=== PATIENT | male | born 1995 | race Caucasian/White ===

== ENCOUNTER 2016-09-04 21:18 | Inpatient (IN) | payer BC ==
[~2016-09-04] VITALS: Ht 177.8 cm; Wt 59.9 kg
--- NOTE | ~2016-09-04 | HP ---
Unit #: [id number] #: [id number] Patient: KAILASH LOPEZ ER [id number] [place] [address] [id number] I MR#: [id number] NAME: KAILASH LOPEZ ROOM: P254 Age: 21 Sex: M Admission Date: 09/04/2016 : 1995 Attending Physician: Celio Coburn M.D. Admitting Physician: Celio Coburn M.D. Primary Care Physician: Primary Care Physician No HISTORY AND PHYSICAL HISTORY OF PRESENT ILLNESS Kailash is a 21 year old admitted to [address] [place] [address] with episodes of leah. PAST MEDICAL HISTORY 1. History of macular diverticulum a. Surgery as a [age] year old PAST SURGICAL HISTORY As above. ALLERGIES No known drug allergies. SOCIAL HISTORY He does not smoke. Drinks alcohol rarely. Admits to using marijuana on a daily basis. FAMILY HISTORY Medically noncontributory. REVIEW OF SYSTEMS CONSTITUTIONAL: No fever or chills. HEENT: Denies any sore throat, ear pain or runny nose. CARDIOVASCULAR: Denies chest pain, irregular heart rhythm or palpitations. CHEST: Denies shortness of breath or cough. No hemoptysis. GASTROINTESTINAL: Denies nausea, vomiting, diarrhea or chronic constipation. ENDOCRINE: Denies history of increased thirst or urination. No recent significant weight loss or gain. GENITOURINARY: Denies dysuria, frequency, or hematuria. SKIN: Denies any rashes. HEMATOLOGIC: Denies history of increased bleeding or bruising. MUSCULOSKELETAL: Denies any hot, swollen joints. No generalized muscle pain. NEUROLOGIC: Denies problems with vision or speech. No frequent, severe headaches. No numbness, tingling or weakness in any extremities. Denies loss of bladder or bowel control. CURRENT MEDICATIONS 1. Seroquel 50 mg q.h.s. 2. [place] 300 mg b.i.d. 3. Milk of Magnesia p.r.n. Unit #: [id number] #: [id number] Patient: KAILASH LOPEZ ER 4. Maalox p.r.n. 5. Tylenol p.r.n. PHYSICAL EXAMINATION GENERAL: Alert, well-nourished, in no apparent distress. VITAL SIGNS: Blood pressure 130/100, heart rate 80, respirations 16, temperature 98.6. WEIGHT: 132 pounds. HEIGHT: 5'10". SKIN: Warm and dry without rash or lesion. HEENT: Normocephalic. TMs not viewed. Oral and nasal passages clear. Conjunctivae clear. Pupils equal, round and reactive to light and accommodation. Extraocular movements intact. NECK: Supple without lymphadenopathy or thyromegaly. HEART: Regular rate and rhythm without murmur. LUNGS: Clear. ABDOMEN: Soft, nontender. : Not done. EXTREMITIES: No evidence of cyanosis, clubbing or edema. Moves all extremities without focal deficit. NEUROLOGICAL: Grossly within normal limits. Cranial Nerves: II: Visual tiwari are intact. III, IV AND : Extraocular movements are intact. Pupils are equal, round and reactive to light. V: Facial sensation is grossly normal. VII: Facial movements and expression are normal. VIII: Auditory acuity grossly intact. IX, X: Uvula is midline. Phonation is normal. XI: Patient shrugs shoulders and turns head normally. XII: Tongue protrudes in the midline. Sensory and Motor Function: Sensory and motor sensation is grossly normal. Motor: moves all extremities well. Coordination: Gait is normal. Deep Tendon Reflexes: Intact. IMPRESSION Psychiatric admission RECOMMENDATIONS PSYCHIATRIC: Per psychiatrist. MEDICAL: I see no contraindications to participating in facility's activities. MEDICAL PROGNOSIS Good. MEDICAL CONDITION Stable. Dictated by... Kyra Sandoval P.A.-C. for Janiya Britton/luis TD: 09/05/2016 22:28 Unit #: [id number] #: [id number] Patient: KAILASH LOPEZ JOB #: [id number] HISTORY AND PHYSICAL Page 1 of 1 X Kyra Sandoval HISTORY AND PHYSICAL
--- NOTE | ~2016-09-04 | PN ---
Unit #: [id number] #: [id number] Patient: MINA LOPEZ ER [id number] [facility] [address] [place] [address] [id number] I MR#: [id number] NAME: MINA LOPEZ ROOM: P254 Age: 21 Sex: M Admission Date: 09/04/2016 : 1995 Attending Physician: Celio Coburn M.D. Admitting Physician: Celio Coburn M.D. Primary Care Physician: Primary Care Physician Angelina HOSKINS PROGRESS NOTES DATE 09/08/2016 DISCUSSION The patient remains abed, and he states that he is feeling a bit better with discontinuation of Seroquel but does report feeling "a little shaky" after his first low dose Abilify administration. We continue current treatment as the patient continues to express some racing thoughts and depressed mood. Suicidal ideation has reduced considerably. Dictated by... Celio Coburn M.D. CB/moose TD: 09/08/2016 12:40 JOB #: [id number] [facility] PROGRESS NOTES Page 1 of 1 X Celio Coburn MD X PROGRESS NOTE
--- NOTE | ~2016-09-04 | PN ---
Unit #: [id number] #: [id number] Patient: MINA LOPEZ ER [id number] [facility] [address] [place] [address] [id number] MR#: [id number] NAME: MINA LOPEZ ROOM: P254 Age: 21 Sex: M Admission Date: 09/04/2016 : 1995 Attending Physician: Celio Coburn M.D. Admitting Physician: Celio Coburn M.D. Primary Care Physician: Primary Care Physician Angelina HOSKINS PROGRESS NOTES DATE 09/07/2016 DISCUSSION The patient continues to complain of intolerable drowsiness and dizziness with Seroquel. I will discontinue this medication and begin low-dose Abilify 5 mg q.a.m. tomorrow. He continues to complain of "feeling funny" and continues to endorse positive racing thoughts and thoughts of suicide as well as dysphoric mood. Dictated by... Celio Coburn M.D. CB/moose TD: 09/07/2016 14:36 JOB #: [id number] [facility] PROGRESS NOTES Page 1 of 1 X Celio Coburn MD PROGRESS NOTE
--- NOTE | ~2016-09-04 | A ---
[facility] Nutrition Therapy DATE: 09/05/16 Patient: MINA LOPEZ Physician: LYNNE Address: [facility] [address] Room/Bed: [address], Zip: [place] [address] Admit Date: 09/04/16 Date of : [birth year] Height: 5 10 Weight: 131 59.234409 NUTRITIONAL ASSESSMENT: REASON: LOW BMI (18.9) PATIENT ADMITTED FOR SI AND DEPRESSION PMH: NONE Anthropometrics: HT: 70", WT: 132#, BMI: 18.9, %IBW: 80 Labs: 09/05/16- BUN: 7 Meds: LITHIUM Assessment: PATIENT IS A 21 Y/O MALE ADMITTED FOR SI AND DEPRESSION. PATIENT IS CURRENTLY EMPLOYED [employer], LIVES WITH HIS MOTHER AND SISTER, SMOKES MARIJUANA DAILY, AND DENIES ANY OTHER SUBSTANCE ABUSE. UPON ADMIT PATIENT STATED A FAIR APPETITE WITH NO RECENT WEIGHT CHANGES, AND HE HAS NOT BEEN SLEEPING. THERE IS NO WEIGHT HX IN [facility] AND CURRENT PO INTAKES ARE UNAVAILABLE. PATIENT DID NOT SCORE ANY NUTRITIONAL RISK POINTS. THERE ARE NO SKIN OR GI ISSUES NOTED ATT. 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 Dx: NO NUTRITION RISK Intervention: VEGETARIAN DIET, MEDS PER MD, PSYCH Monitoring, Evaluation and Goals: 1. AEQUATE PO INTAKES >50% OF MEALS 2. PREVENT, CORRECT MICRO/MACRO NUTRIENT DEFICIENCIES MONITOR: WEIGHTS, LABS, PO/FLUID INTAKES Recommendations: 1. CONTINUE VEGETARIAN DIET PER PATIENT REQUEST. OFFER SNACKS BETWEEN MEALS. WILL SEND LARGE FRUIT AND VEGETABLE PORTIONS 2. ENCOURAGE ADEQUATE PO AND FLUID INTAKES 3. OBTAIN WEIGHTS ROUTINELYEVERY 3-4 DAYS) RD TO F/U PER PROTOCOL AND PRN R/T PATIENT NOT CURRENTLY AT NUTRITIONAL RISK [facility] Nutrition Therapy DATE: 09/05/16 Patient: MINA LOPEZ Physician: LYNNE Address: [facility] [address] Room/Bed: [address], Zip: [place] [phone] Admit Date: 09/04/16 Date of : [birth year] Height: 5 10 Weight: 131 59.702654 Respectfully, KEILA GODFREY RD, LD [facility] cc: client file
--- NOTE | ~2016-09-04 | PA ---
Unit #: [id number] #: [id number] Patient: MINA LOPEZ [id number] [place] [address] [id number] I MR#: [id number] NAME: MINA LOPEZ ROOM: P201 Age: 21 Sex: M Admission Date: 09/04/2016 : 1995 Date of Assessment: 09/05/2016 Attending Physician: Celio Coburn M.D. Admitting Physician: Celio Coburn M.D. Primary Care Physician: Primary Care Physician No PSYCHIATRIC ASSESSMENT IDENTIFYING INFORMATION The patient is a 21-year-old white male admitted to the [address] [place] [address] with increasing symptoms of what appears to be a mixed manic episode. INFORMANT(S) Patient. RELIABILITY Fair. CHIEF COMPLAINT None given. HISTORY OF PRESENT ILLNESS The patient is a 21-year-old white male who is treated by an outpatient psychiatrist for a bipolar spectrum disorder. He was recently changed from Lamictal to lithium. He reports that yesterday he had become increasingly irritable and angry. He had also reported some positive suicidal ideation and has not been sleeping for some time. The patient is currently employed at [employer]. He reports occasional use of cannabis but denies abuse of other psychoactive substances. The patient denies current suicidal/homicidal ideation or psychotic features and is calm and cooperative during interview. PAST PSYCHIATRIC HISTORY The patient has never been psychiatrically hospitalized. As noted previously, he was recently started on lithium following an unsuccessful trial of Lamictal. FAMILY HISTORY Noncontributory. SOCIAL HISTORY The patient lives with his mother. He is employed at [employer] "[employer] He reports occasional use of cannabis. MEDICATION HISTORY [place] carbonate. ALLERGIES None. MENTAL STATUS EXAM Unit #: [id number] #: [id number] Patient: MINA LOPEZ At this time, reveals the patient to be a somewhat thin appearing white male appearing his stated age. He is in no apparent physical distress at the time of examination. He is awake, alert, oriented in all spheres. His mood is mildly dysphoric. His affect constricted. Speech is generally relevant and coherent. There are no gross deficits in memory or cognition noted. Intelligence is judged to be in the average range based on fund of knowledge. The patient is cooperative throughout the interview. He is currently endorsing no suicidal or homicidal ideation. Denies any psychotic symptoms. His judgement and insight appear to be reasonably intact. ASSETS AND LIABILITIES Patient's assets to be assessed. Liabilities, ongoing cannabis use. ADMITTING DIAGNOSES 1. Bipolar disorder, mixed phase. 2. Cannabis use disorder. PSYCHIATRIC PLAN/TREATMENT GOALS The patient remains hospitalized for safety and stabilization. I will increase his lithium 300 mg b.i.d. for a more definitive dose and will add Seroquel 50 mg at h.s. given the patient's complaints of depression and recent sleep changes. The patient will be transferred to the [address] [place] [address] unit and suicide precautions remain in place. ESTIMATED LENGTH OF STAY Three to five days. Dictated by... Celio Coburn M.D. JANN/ping TD: 09/05/2016 15:05 JOB #: [id number] PSYCHIATRIC ASSESSMENT Page 1 of 1 X Celio Coburn MD X PSYCHIATRIC ASSESSMENT
--- NOTE | ~2016-09-04 | PN ---
Unit #: [id number] #: [id number] Patient: MINA LOPEZ ER [id number] [facility] [address] [place] [address] [id number] I MR#: [id number] NAME: MINA LOPEZ ROOM: P254 Age: 21 Sex: M Admission Date: 09/04/2016 : 1995 Attending Physician: Celio Coburn M.D. Admitting Physician: Celio Coburn M.D. Primary Care Physician: Primary Care Physician Angelina HOSKINS PROGRESS NOTES DATE 09/06/2016 DISCUSSION The patient seems calmer today but is complaining of dizziness and sedation with initiation of Seroquel. Given the patient's report of (1) __ sedation, we may need to consider a different pharmacologic agent other than Seroquel, but we will try at least one more dose this evening. Dictated by... Celio Coburn M.D. CB/bzmary TD: 09/06/2016 14:39 JOB #: [id number] [facility] PROGRESS NOTES Page 1 of 1 X Celio Coburn MD PROGRESS NOTE
--- NOTE | ~2016-09-04 | PN ---
Unit #: [id number] #: [id number] Patient: MINA LOPEZ ER [id number] [facility] [address] [place] [address] [id number] I MR#: [id number] NAME: MINA LOPEZ ROOM: P254 Age: 21 Sex: M Admission Date: 09/04/2016 : 1995 Attending Physician: Celio Coburn M.D. Admitting Physician: Celio Coburn M.D. Primary Care Physician: Primary Care Physician Angelina HOSKINS PROGRESS NOTES DATE 09/09/2016 DISCUSSION The patient is resting comfortably today. Staff reports no management issues but reports that the patient's participation within the therapeutic milieu has been less optimal. We expect a discharge within the next couple of days should the patient sustain progress. Dictated by... Celio Coburn M.D. CB/luis TD: 09/09/2016 21:21 JOB #: [id number] [facility] PROGRESS NOTES Page 1 of 1 X Celio Coburn MD PROGRESS NOTE
--- NOTE | ~2016-09-04 | DS ---
Unit #: [id number] #: [id number] Patient: MINA LOPEZ ER [id number] [facility] [address] [place] [address] [id number] I MR#: [id number] NAME: MINA LOPEZ ROOM: P254 Age: 21 Sex: M Admission Date: 09/04/2016 : 1995 Discharge Date: 09/11/2016 Attending Physician: Celio Coburn M.D. Primary Care Physician: Primary Care Physician No DISCHARGE SUMMARY REASON FOR ADMISSION The patient is a 21-year-old white male, admitted in a mixed manic episode. HOSPITAL COURSE The patient was admitted to the [address] [place] [address] unit and placed on suicide precautions. He was continued on previously prescribed lithium and a trial of Seroquel was initiated. Unfortunately, the patient did not tolerate the sedative side effects of Seroquel and this medication was therefore discontinued. Instead he was begun on Abilify 5 mg daily which he tolerated well. The patient's stay in the hospital from that point progressed nicely. By 09/11/2016, the patient was in much brighter spirits and requested discharge and it was so ordered. FINAL DIAGNOSES Bipolar disorder, most recent episode, mixed. DISPOSITION ON DISCHARGE The patient is discharged on the following medications: Abilify 5 mg daily for mood stabilization, lithium carbonate 300 mg b.i.d. for mood stabilization. As the patient's lithium level was only 0.3, consideration will need to be given to an increase in the patient's lithium dose more than likely. The patient will follow up through the auspices of his previous psychiatric provider in the [facility]. PROGNOSIS His prognosis is considered good. Dictated by... Celio Coburn M.D. JANN/cliff TD: 09/11/2016 14:24 JOB #: [id number] Unit #: [id number] #: [id number] Patient: MINA LOPEZ DISCHARGE SUMMARY Page 1 of 1 X Celio Coburn MD X DISCHARGE SUMMARY
--- NOTE | ~2016-09-04 | PN ---
Unit #: [id number] #: [id number] Patient: MINA LOPEZ ER [id number] [facility] [address] [place] [address] [id number] I MR#: [id number] NAME: MINA LOPEZ ROOM: P254 Age: 21 Sex: M Admission Date: 09/04/2016 : 1995 Attending Physician: Celio Coburn M.D. Admitting Physician: Celio Coburn M.D. Primary Care Physician: Primary Care Physician Angelina HOSKINS PROGRESS NOTES DATE 09/10/2016 DISCUSSION The patient is brighter today and out of his room, he reports some improvement in mood, unfortunately his lithium level done today is an inaccurate one, as the patient's lithium was mistakenly held yesterday. We will look to recheck the level as an outpatient. Dictated by... Celio Coburn M.D. CB/alec TD: 09/10/2016 13:21 JOB #: [id number] [facility] PROGRESS NOTES Page 1 of 1 X Celio Coburn MD PROGRESS NOTE
[2016-09-05 09:38] LABS: BASOPHIL# 0.1 X10e3 (0-0.3); BASOPHIL% 0.7 % (0-2.5); EOSINOPHIL# 0.2 X10e3 (0-0.7); EOSINOPHIL% 2.3 % (0.0-7.0); HEMATOCRIT 51.1 % (38.0-50.0); LYMPHOCYTE# 3.1 X10e3 (1.0-3.5); LYMPHOCYTE% 37.9 % (17.0-45.0); MEAN CELL VOLUME 88.1 FL (83-96); MEAN CORPUSCULAR HEMOGLOBIN 29.3 PG (28-34); MEAN CORPUSCULAR HGB CONC 33.3 g/dL (30-36); MEAN PLATELET VOLUME 10.1 FL (6.5-11.5); MONOCYTE# 0.6 X10e3 (0-1.0); MONOCYTE% 7.7 % (3.0-12.0); NEUTROPHIL# 4.2 X10e3 (1.5-7.1); NEUTROPHIL% 51.4 % (40-75); PLATELET COUNT 239 X10e3 (140-420); RED CELL DISTRIBUTION WIDTH 13.8 % (11.0-15.5); WHITE BLOOD COUNT 8.2 X10e3 (4.0-10.5)
[2016-09-05 09:52] LABS: DIFF IND NO
[2016-09-05 10:14] LABS: ALBUMIN SERUM 4.7 g/dL (3.5-5.0); BILIRUBIN,TOTAL 3.3 mg/dL (0.2-2.0); BUN/CREATININE RATIO 8.75; CALCIUM SERUM 9.8 mg/dL (8.4-10.2); CREATININE SERUM 0.8 mg/dL (0.6-1.4); POTASSIUM 4.4 mmol/L (3.5-5.1); PROTEIN TOTAL SERUM 7.8 g/dL (6.0-8.3)
== END 2016-09-11 14:15 | disposition home or self-care (01) | DRG 885 ==
LOC: P2L 23:03 → P2S 23:03 → P2L 09-05 17:07
PROVIDERS: Specialist
DX: F31.60 Bipolar disorder, current episode mixed, unspecified (principal); R45.851 Suicidal ideations; F12.10 Cannabis abuse, uncomplicated
CPT/HCPCS: 80053; 80178; 85025; J2405